=== PATIENT | female | born 1950 | race Caucasian/White ===

== ENCOUNTER → 2018-09-07 | Outpatient (CLI) | payer MEDICARE, OTHER ==
--- NOTE | 2018-09-13 21:55 | REP ---
RIGHT BREAST AND BILATERAL AXILLARY ULTRASOUND: 09/07/2018. Clinical history: The patient states bilateral axillary swelling and tenderness. Diagnostic mammogram 09/07/2018 showed a nodule in the upper outer quadrant left breast. Delay in report awaiting arrival of outside mammograms. Comparison: Bilateral diagnostic mammogram 09/07/2018, outside screening mammogram 02/26/2008 and 12/01/2006. In the upper outer quadrant of the right breast at the site of the nodule on mammography is a 1.1 x 1.1 x 0.7 cm hypoechoic mass. It has some through transmission. It is about 4.6 cm from the nipple. In the right axilla, are two visible nodes, the larger 11 x 10 x 6 mm and the smaller 5 x 5 x 3 mm. They have normal mireya morphology with hyperechoic fatty centers, hypoechoic periphery and notched hilum with blood flow within. The left axilla also shows multiple nodes with the largest two measuring 13 x 6 x 6 mm and 12 x 12 x 9 mm. These also demonstrate typical umbilical morphology by sonography. Impression: 1. Solid nodule 11 x 11 x 7 mm, upper outer quadrant right breast corresponding to the mammographic finding. 2. Fat replaced nodes in both axilla with sonographically normal mireya morphology. 3. Please see mammography report for assessment and final recommendation. Electronically Signed by Edouard Perera MD 09/14/2018 07:20 P
--- NOTE | 2018-09-13 22:06 | REP ---
BILATERAL DIAGNOSTIC DIGITAL MAMMOGRAM: 09/07/2018. Comparison: Bilateral breast ultrasound, bilateral outside mammograms 02/26/2008, 12/01/2006. Clinical history: Bilateral enlarged tender axillary lymph nodes according to the patient. Findings: Standard two-view mammography with 3-D tomosynthesis images are performed. Additional exaggerated CC view of each breast is performed. There are postsurgical changes from her bilateral reduction mammoplasty. Scattered fibroglandular elements are present which might obscure a lesion. In the upper outer quadrant of the right breast is a sharply circumscribed nodule which is unchanged in size, contour and density when compared to the two prior mammograms from a decade ago. There are no other dominant masses, suspicious clusters of microcalcification, nodules, skin thickening or other secondary signs of malignancy. There are some scattered calcifications present but most are in the skin. Radiographs do not demonstrate any axillary lymphadenopathy. The 3-D tomosynthesis images show no additional findings. Bilateral breast ultrasound: 11 mm nodule in the upper outer quadrant of the right breast corresponds to the well-defined nodule on mammogram. It has internal echoes and through transmission. There were no calcifications associated with it or speckled echoes. The right axilla is scanned and showed two lymph nodes, the larger 11 x 10 x 6 mm and the smaller 5 x 5 x 3 mm. Left axilla: It showed multiple lymph nodes, the largest 13 x 6 x 6 mm and 12 x 9 x 12 mm. All of the lymph nodes seen on both sides showed normal hypoechoic periphery and echogenic or fatty center with blood flow through the hilum. This is normal morphology. Impression: 1. BIRADS 2: BI-RADS/ACR category 2 mammogram. Benign Findings. No evidence of malignancy. Solid nodule by sonography is stable by mammogram for over a decade. Its size, contour and density is unchanged. This is a benign finding. 2. The bilateral axillary nodes have normal morphology. 3. Recommend annual followup screening mammogram. This mammogram was interpreted with the aid of an FDA-approved computer-aided detection system. A. Negative x-ray reports should not delay biopsy if a dominant or clinically suspicious mass is present. B. Four to eight percent of cancers are not identified by x-ray. C. Adenosis and dense breasts may obscure an underlying neoplasm The patient states she/he had a clinical breast exam in 08/2018. The patient has a lifetime breast cancer risk assessment is 10.8%. The patient letter being requested is M 2. Electronically Signed by Edouard Perera MD 09/14/2018 07:22 P
== END ==
LOC: M RAD 09:26
DX: N63.10 Unspecified lump in the right breast, unspecified quadrant (principal); N64.1 Fat necrosis of breast
CPT/HCPCS: 76642; 77066; G0279

== ENCOUNTER 2019-01-19 23:59 | Emergency (ER) | payer MEDICARE, OTHER ==
[~2019-01-19] VITALS: Ht 154.9 cm; Wt 56.8 kg
[2019-01-20] MEDS ORDERED: MULTCAP PO (00:32)
[2019-01-20] MEDS ORDERED: MAGN200T PO (00:32)
[2019-01-20] MEDS ORDERED: FISH1000 PO (00:32)
[2019-01-20] MEDS ORDERED: ULTR5TAB PO (00:32)
[2019-01-20] MEDS ORDERED: CLOB0.0548 TOP (00:32)
[2019-01-20] MEDS ORDERED: IODICRY XX (00:32)
[2019-01-20] MEDS ORDERED: LAMO200T3 PO (00:32)
[2019-01-20] MEDS ORDERED: VENL75TA2 PO (00:32)
[2019-01-20 03:30] VITALS: BP 154/73
== END 2019-01-20 03:58 | disposition home or self-care (01) ==
LOC: M ED 23:59
DX: K64.5 Perianal venous thrombosis (principal); K59.00 Constipation, unspecified; F31.9 Bipolar disorder, unspecified; Z88.5 Allergy status to narcotic agent; Z88.2 Allergy status to sulfonamides; Z79.899 Other long term (current) drug therapy

== ENCOUNTER → 2019-12-10 | Outpatient (CLI) | payer OTHER ==
[~2019-12-10] MED LIST: CLOB0.0548 TOP; FISH1000 PO; IODICRY XX; LAMO200T3 PO; MAGN200T PO; MULTCAP PO; ULTR5TAB PO; VENL75TA2 PO
--- NOTE | 2019-12-10 11:11 | REPMRS ---
Patient History The patient states she has not had a clinical breast exam in over a year. Family history of unknown cancer in mother, breast cancer at age 50 or over in maternal grandmother, unknown cancer in maternal grandfather. Digital Woman Screen Mammo: December 10, 2019 - Exam #: [id number] Bilateral CC and MLO view(s) were taken. Technologist: Ashley Moreno, Technologist Prior study comparison: September 07, 2018, digital mammo diagnostic bilateral, performed at [facility]. February 26, 2008, bilateral digital woman screen mammo, performed at [facility]. December 01, 2006, bilateral digital woman screen mammo, performed at [facility]. FINDINGS: There are scattered fibroglandular densities. The Volpara volumetric breast density category is:B. There is a stable nodular density in the upper outer quadrant of the right breast unchanged from 2007 prior study. There has been no change in the appearance of the mammogram from the prior studies. There is a mild amount of scattered fibroglandular density which is fairly symmetric. There is no interval development of dominant mass, architectural distortion, or grouped microcalcification suggestive of malignancy. 3-D tomosynthesis shows no additional findings. Assessment: BI-RADS/ACR category 2 mammogram. Benign Findings. Recommendation Routine screening mammogram of both breasts in 1 year (for women over age 40). This patient's Lifetime Breast Cancer Risk is estimated at 10.2 %. This mammogram was interpreted with the aid of an FDA-approved computer-aided dectection system. Electronically Signed By: Salo Encinas MD 12/10/19 1111
== END ==
LOC: M WHC 10:01
PROVIDERS: ATTEND Nurse Practitioner Family
DX: Z12.31 Encounter for screening mammogram for malignant neoplasm of breast (principal); N63.11 Unspecified lump in the right breast, upper outer quadrant

== ENCOUNTER → 2021-01-30 | Outpatient (CLI) | payer OTHER ==
--- NOTE | 2021-01-30 09:44 | REPMRS ---
Patient History The patient states she has not had a clinical breast exam in over a year. Family history of unknown cancer in mother, breast cancer at age 50 or over in maternal grandmother, unknown cancer in maternal grandfather. Patient states no breast complaints today. Patient has signed MRS History Sheet. Digital Woman Screen Mammo: January 30, 2021 - Exam #: [id number] Bilateral CC and MLO view(s) were taken. Technologist: Sofía Priest, Technologist Prior study comparison: December 10, 2019, bilateral digital woman screen mammo performed at [facility]. September 07, 2018, digital mammo diagnostic bilateral, performed at [facility]. February 26, 2008, bilateral digital woman screen mammo, performed at [facility]. FINDINGS: The breast tissue is heterogeneously dense. This may lower the sensitivity of mammography. The Volpara volumetric breast density category is: C. There is a stable mass in the upper-outer quadrant of the right breast unchanged from multiple prior mammograms dating back to 2007. There is a moderate amount of heterogeneously dense fibroglandular tissue which is fairly symmetric. There is no interval development of dominant mass, architectural distortion, or grouped microcalcification typical of malignancy. There has been no change in the appearance of the mammogram from the prior studies. 3-D tomosynthesis shows no additional findings. Assessment: BI-RADS/ACR category 2 mammogram. Benign Findings. Recommendation Routine screening mammogram of both breasts in 1 year (for women over age 40). This patient's [facility] Lifetime Breast Cancer RIsk is estimated at 9.5 %. This mammogram was interpreted with the aid of an FDA-approved computer-aided dectection system. Electronically Signed By: Salo Encinas MD 01/30/21 0944
== END ==
LOC: M WHC 08:28
PROVIDERS: ATTEND Nurse Practitioner Family
DX: Z12.31 Encounter for screening mammogram for malignant neoplasm of breast (principal)

== ENCOUNTER 2021-12-08 13:47 | Emergency (ER) | payer OTHER, MEDICARE ==
[2021-12-08 15:01] LABS: BASO # 0.1 10^3/uL (0.0-0.2); BASO % 0.8 % (0.0-1.0); EOS # 0.2 10^3/uL (0.0-0.5); EOS % 2.4 % (0.0-3.0); HEMATOCRIT 37.4 % (36.0-47.0); HEMOGLOBIN 12.5 g/dl (12.0-15.5); LYMPH # 1.3 10^3/uL (1.5-5.0); LYMPH % 20.2 % (24.0-44.0); MEAN CORPUSCULAR HEMOGLOBIN 30.6 pg (27.0-33.0); MEAN CORPUSCULAR HGB CONC 33.4 g/dl (32.0-36.5); MEAN CORPUSCULAR VOLUME 91.7 fl (80.0-96.0); MONO # 0.5 10^3/uL (0.0-0.8); MONO % 8.5 % (2.0-8.0); NEUTROPHILS # 4.2 10^3/uL (1.5-8.5); NEUTROPHILS % 67.8 % (36.0-66.0); PLATELET COUNT, AUTOMATED 205 10^3/uL (150-450); RED BLOOD COUNT 4.08 10^6/uL (4.00-5.40); WHITE BLOOD COUNT 6.3 10^3/uL (4.0-10.0)
[2021-12-08 15:12] LABS: APPEARANCE, URINE HAZY (CLEAR); BACTERIA, URINE AUTO NEGATIVE (NEGATIVE); BILIRUBIN, URINE AUTO NEGATIVE (NEGATIVE); BLOOD, URINE BLOOD NEGATIVE (NEGATIVE); COLOR, URINE YELLOW (YELLOW); GLUCOSE, URINE (UA) AUTO NEGATIVE (NEGATIVE); KETONE, URINE AUTO NEGATIVE (NEGATIVE); LEUKOCYTE ESTERASE, URINE AUTO NEGATIVE (NEGATIVE); MUCUS, URINE SMALL (NEGATIVE); NITRITE, URINE AUTO NEGATIVE (NEGATIVE); PROTEIN, URINE AUTO NEGATIVE (NEGATIVE); RBC, URINE AUTO 0 /HPF (0-3); SPECIFIC GRAVITY URINE AUTO 1.003 (1.002-1.035); SQUAMOUS EPITHELIAL CELL UR AU 0 /HPF (0-6); UROBILINOGEN, URINE AUTO 0.2 mg/dL (0.0-2.0); WBC, URINE AUTO 0 /HPF (0-3)
[2021-12-08 15:15] LABS: ALBUMIN 3.7 GM/DL (3.2-5.2); ALT/SGPT 27 U/L (12-78); BILIRUBIN,DIRECT 0.2 MG/DL (0.0-0.2); BILIRUBIN,TOTAL 0.4 MG/DL (0.2-1.0); BLOOD UREA NITROGEN 12 MG/DL (7-18); CALCIUM LEVEL 9.1 MG/DL (8.8-10.2); CARBON DIOXIDE LEVEL 26 MEQ/L (21-32); CHLORIDE LEVEL 101 MEQ/L (98-107); GLOMERULAR FILTRATION RATE > 60.0 (>39); GLUCOSE, FASTING 101 MG/DL (70-100); MB/CK RELATIVE INDEX 2.99 (< OR =4); POTASSIUM SERUM 3.8 MEQ/L (3.5-5.1); SODIUM LEVEL 134 MEQ/L (136-145)
[2021-12-08] MEDS ORDERED: ISOVUE-370 76% 100ML VIAL As Ordered ONE (17:38)
[2021-12-08 18:56] LABS: NT-PRO BNP 136 PG/ML (<125)
[2021-12-08] MEDS ORDERED: CARVedilol 12.5 MG TAB PO ONE ×2 (19:20→20:40)
[2021-12-08] MEDS ORDERED: FUROSEMIDE 20MG/2ML VIAL (J1940) IV ONE ×2 (19:20→20:40)
[2021-12-08 20:52] VITALS: BP 167/82
[2021-12-08 21:58] VITALS: BP 141/65
[2021-12-08] MEDS ORDERED: CARV25TA PO ×2 (22:05→23:11)
[2021-12-08] MEDS ORDERED: LISI10TA22 PO ×2 (22:05→23:11)
[2021-12-08] MEDS ORDERED: CHLO125TA PO ×2 (22:05→23:11)
== END 2021-12-08 22:30 | disposition home or self-care (01) ==
LOC: M ED 13:47
DX: I10 Essential (primary) hypertension (principal); Z79.899 Other long term (current) drug therapy; Z88.5 Allergy status to narcotic agent; Z88.2 Allergy status to sulfonamides
CPT/HCPCS: 70450; 71046; 71260; 80053; 81001; 82248; 82550; 82553; 83880; 84484; 85025; 93005; 96374; 96376; 99284; J1940; Q9967

== ENCOUNTER → 2022-02-03 | Outpatient (CLI) | payer OTHER ==
[~2022-02-03] MED LIST changes: +CARV25TA PO; +CHLO125TA PO; +LISI10TA22 PO
== END ==
LOC: M WHC 06:50
PROVIDERS: ATTEND Nurse Practitioner Family
DX: Z12.31 Encounter for screening mammogram for malignant neoplasm of breast (principal); Z78.0 Asymptomatic menopausal state

== ENCOUNTER 2022-08-11 20:51 | Emergency (ER) | payer MEDICARE, OTHER ==
[~2022-08-11] VITALS: Ht 154.9 cm; Wt 68.1 kg
[2022-08-11 21:42] LABS: BASO # 0.1 10^3/uL (0.0-0.2); BASO % 0.8 % (0.0-1.0); EOS # 0.1 10^3/uL (0.0-0.5); EOS % 0.8 % (0.0-3.0); HEMATOCRIT 37.4 % (36.0-47.0); HEMOGLOBIN 12.8 g/dl (12.0-15.5); LYMPH # 1.1 10^3/uL (1.5-5.0); LYMPH % 18.5 % (24.0-44.0); MEAN CORPUSCULAR HEMOGLOBIN 31.5 pg (27.0-33.0); MEAN CORPUSCULAR HGB CONC 34.2 g/dl (32.0-36.5); MEAN CORPUSCULAR VOLUME 92.1 fl (80.0-96.0); MONO # 0.6 10^3/uL (0.0-0.8); MONO % 9.3 % (2.0-8.0); NEUTROPHILS # 4.2 10^3/uL (1.5-8.5); NEUTROPHILS % 70.3 % (36.0-66.0); PLATELET COUNT, AUTOMATED 193 10^3/uL (150-450); RED BLOOD COUNT 4.06 10^6/uL (4.00-5.40)
[2022-08-11 22:04] LABS: LIPASE 42 U/L (12-53)
[2022-08-11 22:06] LABS: ALKALINE PHOSPHATASE 62 U/L (46-116); ALT/SGPT 24 U/L (7.0-40); AST/SGOT 25 U/L (<34); BILIRUBIN,DIRECT 0.2 MG/DL (<0.4); BILIRUBIN,TOTAL 0.5 MG/DL (0.3-1.2); BLOOD UREA NITROGEN 17 MG/DL (9-23); CARBON DIOXIDE LEVEL 26 MMOL/L (20-31); CHLORIDE LEVEL 96 MMOL/L (98-107); CK-MB VALUE MASS 1.7 NG/ML (<3.6); CPK CREATINE PHOSPHOKINASE 128 U/L (34-145); CREATININE FOR GFR 0.77 MG/DL (0.55-1.30); GLOMERULAR FILTRATION RATE > 60.0 (>39); GLUCOSE, FASTING 104 MG/DL (74-106); MB/CK RELATIVE INDEX 1.32 (< OR =4); POTASSIUM SERUM 4.5 MMOL/L (3.5-5.1); SODIUM LEVEL 130 MMOL/L (136-145); TOTAL PROTEIN 6.7 G/DL (5.7-8.2)
[2022-08-12] MEDS ORDERED: MORPHINE 2 MG/ML 1ML VIAL IV PRN (04:20)
[2022-08-12] MEDS ORDERED: ONDANSETRON 4MG 2ML VIAL IV ONE (04:20)
[2022-08-12] MEDS ORDERED: ISOVUE-370 76% 100ML VIAL As Ordered ONE (04:24)
[2022-08-12] MEDS ORDERED: GI COCKTAIL 50ML BTL(HYOSCYAMINE/MAALOX/LIDOCAINE VISCOUS)(1:3:1) PO ONE (05:20)
[2022-08-12 06:30] VITALS: BP 119/58
[2022-08-12] MEDS ORDERED: ONDA4TAB6 PO (06:46)
[2022-08-12] MEDS ORDERED: MIRA3350 PO (06:46)
== END 2022-08-12 07:01 | disposition home or self-care (01) ==
LOC: M ED 20:51
DX: K59.00 Constipation, unspecified (principal); Z79.899 Other long term (current) drug therapy; Z88.5 Allergy status to narcotic agent; Z88.2 Allergy status to sulfonamides
CPT/HCPCS: 71045; 74177; 76705; 80048; 80076; 81002; 82550; 82553; 83690; 84484; 85025; 93005; 93041; 94760; 96374; 96375; 99285; J2405; Q9967

== ENCOUNTER 2022-08-29 21:23 | Emergency (ER) | payer MEDICARE, OTHER ==
[~2022-08-29] VITALS: Ht 154.9 cm; Wt 66.7 kg
[~2022-08-29 21:23] MED LIST changes: +MIRA3350 PO; +ONDA4TAB6 PO
[2022-08-29 22:06] LABS: APPEARANCE, URINE MANUAL TURBID (CLEAR); COLOR, URINE MANUAL RED (YELLOW); PH,URINE MAN 5.5 UNITS (5.0 - 7.0)
[2022-08-29 22:07] LABS: BILIRUBIN, URINE MANUAL NEGATIVE (NEGATIVE); BLOOD URINE MANUAL POSITIVE (NEGATIVE); GLUCOSE, URINE (UA) MANUAL NEGATIVE (NEGATIVE); KETONE, URINE MANUAL NEGATIVE (NEGATIVE); LEUKOCYTE ESTERASE, URINE MAN POSITIVE (NEGATIVE); NITRITE, URINE MANUAL NEGATIVE (NEGATIVE); PROTEIN, URINE MANUAL 2+ mg/dL (NEGATIVE); UROBILINOGEN, URINE MANUAL NORMAL (NORMAL)
[2022-08-29 22:11] LABS: RBC, URINE TNTC /hpf (0-3)
[2022-08-29 22:12] LABS: BACTERIA, URINE SMALL AMOUNT; HYALINE CAST, URINE NONE SEEN /lpf (0-1); SQUAMOUS EPITHELIAL CELL URINE NONE SEEN /hpf (SMALL AMT)
[2022-08-30 01:35] LABS: BASO # 0.1 10^3/uL (0.0-0.2); BASO % 0.4 % (0.0-1.0); EOS # 0.1 10^3/uL (0.0-0.5); EOS % 0.9 % (0.0-3.0); HEMATOCRIT 38.1 % (36.0-47.0); HEMOGLOBIN 12.7 g/dl (12.0-15.5); LYMPH # 0.9 10^3/uL (1.5-5.0); LYMPH % 6.4 % (24.0-44.0); MEAN CORPUSCULAR HEMOGLOBIN 30.5 pg (27.0-33.0); MEAN CORPUSCULAR HGB CONC 33.3 g/dl (32.0-36.5); MEAN CORPUSCULAR VOLUME 91.4 fl (80.0-96.0); MONO # 0.8 10^3/uL (0.0-0.8); NEUTROPHILS # 11.9 10^3/uL (1.5-8.5); NEUTROPHILS % 85.9 % (36.0-66.0); PLATELET COUNT, AUTOMATED 209 10^3/uL (150-450); RED BLOOD COUNT 4.17 10^6/uL (4.00-5.40); WHITE BLOOD COUNT 13.9 10^3/uL (4.0-10.0)
[2022-08-30 01:57] LABS: BLOOD UREA NITROGEN 17 MG/DL (9-23); CARBON DIOXIDE LEVEL 24 MMOL/L (20-31); CHLORIDE LEVEL 101 MMOL/L (98-107); CREATININE FOR GFR 0.75 MG/DL (0.55-1.30); GLOMERULAR FILTRATION RATE > 60.0 (>39); GLUCOSE, FASTING 120 MG/DL (74-106); POTASSIUM SERUM 4.5 MMOL/L (3.5-5.1); SODIUM LEVEL 135 MMOL/L (136-145)
[2022-08-30] MEDS ORDERED: CEFUROXIME 500 MG TAB PO ONE (02:30)
[2022-08-30] MEDS ORDERED: CEFU50TA PO (02:37)
[2022-08-30 02:53] VITALS: BP 126/68
== END 2022-08-30 03:04 | disposition home or self-care (01) ==
LOC: M ED 21:23
DX: N30.01 Acute cystitis with hematuria (principal); R11.2 Nausea with vomiting, unspecified; I10 Essential (primary) hypertension; K59.00 Constipation, unspecified; Z90.710 Acquired absence of both cervix and uterus; Z88.2 Allergy status to sulfonamides; Z88.5 Allergy status to narcotic agent; Z88.8 Allergy status to other drugs, medicaments and biological substances; Z79.899 Other long term (current) drug therapy

== ENCOUNTER 2023-02-02 07:26 | Day surgery (SDC) | payer MEDICARE, OTHER ==
[~2023-02-02] VITALS: Ht 154.9 cm; Wt 66.2 kg
[~2023-02-02 07:26] MED LIST changes: +CEFU50TA PO; +CVS1CAP2 PO; +K2 P1TAB PO; +LISI5TAB11 PO; +NORV5TAB PO; +NS 1,000 ML IV ONE; +OMEGCAP4 PO; +THERTAB52 PO; +VITA100024 PO; +VITACAP8 PO; +aloe PO
[2023-02-02] MEDS ORDERED: LIDOCAINE 2% 100MG/5ML SDV (FOR ANES.) As Ordered ONE (08:59)
[2023-02-02] MEDS ORDERED: propofoL 200 MG/20 ML VIAL As Ordered ONE (08:59)
[2023-02-02 09:52] VITALS: BP 134/67; TEMP 97.5; O2SAT 100
== END 2023-02-02 10:05 | disposition home or self-care (01) ==
LOC: M OPP 07:26
PROVIDERS: ATTEND Surgery
DX: Z12.11 Encounter for screening for malignant neoplasm of colon (principal); Z86.010 Personal history of colon polyps; D12.8 Benign neoplasm of rectum; K64.9 Unspecified hemorrhoids; K63.89 Other specified diseases of intestine; Z79.899 Other long term (current) drug therapy; Z88.2 Allergy status to sulfonamides; Z88.5 Allergy status to narcotic agent

== ENCOUNTER → 2023-02-16 | Outpatient (CLI) | payer MEDICARE, OTHER ==
[~2023-02-16] MED LIST changes: -NS 1,000 ML IV ONE
== END ==
LOC: M WHC 12:28
PROVIDERS: ATTEND Nurse Practitioner Family
DX: Z12.31 Encounter for screening mammogram for malignant neoplasm of breast (principal)

== ENCOUNTER → 2023-07-07 | Outpatient (CLI) | payer MEDICARE, OTHER | LOC: M PLARAD 08:56 | PROVIDERS: ATTEND Psychiatry & Neurology Neurology | DX: G43.109 Migraine with aura, not intractable, without status migrainosus (principal); G43.B0 Ophthalmoplegic migraine, not intractable; R90.82 White matter disease, unspecified; G31.9 Degenerative disease of nervous system, unspecified ==

== ENCOUNTER 2023-12-22 08:07 | Emergency (ER) | payer MEDICARE, OTHER ==
[~2023-12-22] VITALS: Ht 154.9 cm; Wt 68.6 kg
[2023-12-22] MEDS ORDERED: MEDR4PAK (08:32)
[2023-12-22] MEDS ORDERED: ESTR62CR (08:32)
[2023-12-22] MEDS ORDERED: LOSA25TA13 (08:32)
[2023-12-22] MEDS ORDERED: BENA25TA5 (08:32)
[2023-12-22] MEDS ORDERED: CLOB0.0526 TOP (08:32)
[2023-12-22] MEDS ORDERED: ZYRT10TA12 (08:32)
[2023-12-22] MEDS ORDERED: PEPC1TAB5 (08:32)
[2023-12-22] MEDS ORDERED: HYDR-3363 PO (09:32)
[2023-12-22 09:59] VITALS: BP 140/63; TEMP 97.8; O2SAT 98
== END 2023-12-22 10:00 | disposition home or self-care (01) ==
LOC: M ED 08:07
DX: L50.9 Urticaria, unspecified (principal); I10 Essential (primary) hypertension; Z88.1 Allergy status to other antibiotic agents; Z88.2 Allergy status to sulfonamides; Z88.8 Allergy status to other drugs, medicaments and biological substances; Z79.899 Other long term (current) drug therapy

== ENCOUNTER → 2023-12-27 | Outpatient (REF) ==
[~2023-12-27] MED LIST changes: +BENA25TA5; +CLOB0.0526 TOP; +ESTR62CR; +HYDR-3363 PO; +LOSA25TA13; +MEDR4PAK; +ONDA-282 PO; -ONDA4TAB6 PO; +PEPC1TAB5; +ZYRT10TA12
== END ==
LOC: M PLALAB 12:05
PROVIDERS: ATTEND Family Medicine
DX: R52 Pain, unspecified (principal)

== ENCOUNTER → 2024-02-28 | Outpatient (CLI) | payer MEDICARE, OTHER | LOC: M WHC 14:12 | PROVIDERS: ATTEND Nurse Practitioner Family | DX: Z12.31 Encounter for screening mammogram for malignant neoplasm of breast (principal); R92.323 Mammographic fibroglandular density, bilateral breasts ==

== ENCOUNTER → 2025-03-19 | Outpatient (CLI) | payer OTHER, MEDICARE ==
[~2025-03-19] MED LIST changes: -VITA100024 PO; +VITA100051 PO
== END ==
LOC: M WHC 11:14
PROVIDERS: ATTEND Family Medicine
DX: Z12.31 Encounter for screening mammogram for malignant neoplasm of breast (principal)